=== PATIENT | female | born 1970 | race African-American/Black ===

== ENCOUNTER 2016-04-01 13:41 | Emergency (ER) | payer MEDICARE ==
[2016-04-01 14:26] LABS: Hematocrit 40.2 % (36.0-47.0); Mean Platelet Volume 6.8 fL (7.4-10.4); Red Blood Cell (RBC) Count 4.52 mill/uL (4.20-5.40); White Blood Cell (WBC) Count 8.2 thou/uL (4.8-10.8)
[2016-04-01 14:27] LABS: Neutrophil 49 % (42-75)
[2016-04-01 14:33] LABS: Acetaminophen Less than 3.0 mcg/mL (10.0-30.0); Salicylate Less than 5.0 mg/dL (15.0-30.0)
[2016-04-01 14:35] LABS: ALT (SGPT) 17 U/L (0-55); AST (SGOT) 18 U/L (5-34); Alkaline Phosphatase 68 U/L (40-150); Anion Gap 13 mmol/L (10-20); BUN (Urea Nitrogen) 15 mg/dL (7.0-18.7); Bilirubin, Total 0.4 mg/dL (0.2-1.2); Calc. Creatinine Clearance 0 mL/min (70-130); Calcium 9.2 mg/dL (7.8-10.44); Carbon Dioxide 26 mmol/L (22-29); Chloride 105 mmol/L (98-107); Estimated GFR-MDRD Greater than 90; Globulin 3.3 g/dL (2.4-3.5); Protein, Total 7.6 g/dL (6.0-8.3)
[2016-04-01 14:41] LABS: Methadone Not Detected (NotDetected); Methamphetamine Not Detected (NotDetected)
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
== END 2016-04-01 21:46 ==
LOC: BURERS 13:41
DX: R45.851 Suicidal ideations (principal); E78.5 Hyperlipidemia, unspecified; I10 Essential (primary) hypertension; F41.9 Anxiety disorder, unspecified; Z79.899 Other long term (current) drug therapy
CPT/HCPCS: 80053; 84703; 85025; 93005; G0478; G0479 ×3; 36415; 80307; 96360; 96361